=== PATIENT | female | born 2000 | race Caucasian/White ===

== ENCOUNTER 2020-03-31 14:28 | Emergency (ER) | payer BC, OTHER ==
[~2020-03-31] VITALS: Ht 165.1 cm; Wt 59.1 kg
[2020-03-31 14:34] VITALS: BP 130/81
--- OUTSIDE RECORDS SUMMARY | 2020-03-31 14:34 | XMS REPORT ---
Author Bre Casper Organization [employer] Address Unknown Phone Unavailable Care Team Providers Care Leather Worker Name Role Phone Nahum Monroe CP Unavailable Allergies, Adverse Reactions, Alerts Substance Reaction Event Type N.K.D.A. Info Not Available Non Drug Allergy Problems Problem Type Condition Code Onset Dates Condition Statu s Assessment Eyelid dermatitis, eczematous H01.139 Active Medications Medication Code System Code Instructions Start Date End Date Status Dosage ZyrTEC [facility] 0 not defined Singulair [facility] [address]-12 not defi sony Elidel [facility] [address]-70 1 % Externally Twice a day 1 thin amount to eyelids Procedures Procedure Coding System Code Date Office Visit, New Pt., Level 2 CPT-[address] Vital Signs Date/Time: Jun 29, 2016 Blood Pressure Diastolic 59 mm Hg Blood Pressure Systolic 100 mm Hg Cardiac Monitoring Heart Rate 68 /min Wt Percentile 56.79 % BMI 21.07 Index Weight 126.6 lbs Height 100/59 in BMIPercentile 49.01 % Results No Known Results Summary Purpose [employer] Submission
--- OUTSIDE RECORDS SUMMARY | 2020-03-31 14:34 | XMS REPORT ---
Author Bre Casper Organization [employer] Address Unknown Phone Unavailable Care Team Providers Care Golf Cart Mechanic Name Role Phone Nahum Monroe Unavailable Allergies No Known Allergies Problems No Known Problems Medications No Known Medications Results No Known Results Summary Purpose [employer] Submission
[2020-03-31] MEDS ORDERED: TETANUS,DIPTH,PERTUSS P/F (BOOSTRIX) 0.5 ML VIAL IM ONE (15:00)
[2020-03-31] MEDS ORDERED: ACETAMINOPHEN 325 MG TABLET ONE (15:04)
[2020-03-31] MEDS ORDERED: METR70GE16 VG (15:07)
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
== END 2020-03-31 15:13 | disposition home or self-care (01) ==
LOC: ER 14:30
DX: S09.90XA Unspecified injury of head, initial encounter (principal); S01.01XA Laceration without foreign body of scalp, initial encounter; Z88.1 Allergy status to other antibiotic agents; Z23 Encounter for immunization; W22.8XXA Striking against or struck by other objects, initial encounter; Y92.828 Other wilderness area as the place of occurrence of the external cause
CPT/HCPCS: 90715

== ENCOUNTER 2020-04-07 16:48 | Emergency (ER) | payer BC ==
[~2020-04-07] VITALS: Ht 165.1 cm; Wt 58.9 kg
[~2020-04-07 16:48] MED LIST: METR70GE16 VG
[2020-04-07 16:53] VITALS: BP 114/76
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
== END 2020-04-07 16:58 | disposition home or self-care (01) ==
LOC: EDUNIT# 16:48 → ER 16:49
DX: S01.9 Open wound of unspecified part of head (principal); X58.XXXD Exposure to other specified factors, subsequent encounter